=== PATIENT | male | born 1950 | race Caucasian/White ===

== ENCOUNTER → 2020-11-02 | Day surgery (SDC) | payer MEDICARE ==
[2020-10-31 15:05] LABS: BASOPHILS # (AUTO) 0.1 (0.0-0.1); BASOPHILS % 0.8 % (0.0-1.0); EOSINOPHILS # (AUTO) 0.5 (0.0-0.4); EOSINOPHILS % 5.4 % (0.0-6.0); HEMATOCRIT 38.7 % (38.2-49.6); HEMOGLOBIN 11.9 g/dL (14.0-18.0); LYMPHOCYTES # (AUTO) 2.4 (1.0-3.2); LYMPHOCYTES % 25.9 % (18.0-39.1); MEAN CORPUSCULAR HEMOGLOBIN 26.9 pg (28-32); MEAN CORPUSCULAR HGB CONC 30.7 g/dL (31-35); MEAN CORPUSCULAR VOLUME 87.6 fL (81-99); MONOCYTES # (AUTO) 0.8 (0.2-0.8); MONOCYTES % 8.8 % (4.4-11.3); NEUTROPHILS # (AUTO) 5.4 (2.1-6.9); NEUTROPHILS % 58.7 % (38.7-80.0); PLATELET COUNT 265 x10e3/uL (140-360); RED BLOOD COUNT 4.42 x10e6/uL (4.3-5.7); RED CELL DISTRIBUTION WIDTH 15.7 % (11.7-14.4)
[~2020-11-02] MED LIST: ASPIRIN81 MG PO; B&O 60MG R/S 60 MG SUPP PR ONE; BACLOFEN20 MG PO; BUPIVACAINE HCL 0.5% INJ 30 ML VIAL INJ ONE; CIPRO250 MG PO; DEXAMETHASONE SOD PHOS INJ 4 MG/ML VIAL ONE; ELIQUIS2.5 MG PO; IOPAMIDOL 300MG/ML 50ML INFUS..BTL IV ONE; LIDOCAINE 1% W/EPINEPHRINE 20 ML VIAL ONE; NEURONTIN300 MG PO; ONDANSETRON HCL INJ 2MG/ML 2ML 2 MG/ML VIAL ONE; OXYCODONE HCL20 M1 PO; OXYCODONE/ACETAMINOPHEN 5-325 1 EACH TABLET ONE; PIPERACILLIN/TAZOBACTAM 3.375 GM VIAL ONE; POVIDONE IODINE 0.05% 0.05 % ML PO ONE; SEVOFLURANE INHAL SOLN 250 ML PEN BTL ONE; SLEEPING AID; SODIUM CHLORIDE 0.9% 50ML 50 ML ONE; TIZANIDINE HCL4 M1 PO; VENOFER100 MG/5 M PO; [UNRECOGNIZED DRUG - OTHER]
[2020-11-02 09:50] VITALS: BP 93/48
== END | disposition home or self-care (01) ==
LOC: OR 06:12
PROVIDERS: ATTEND Urology
DX: R33.9 Retention of urine, unspecified (principal); N31.9 Neuromuscular dysfunction of bladder, unspecified; N39.0 Urinary tract infection, site not specified; R39.14 Feeling of incomplete bladder emptying; N39.41 Urge incontinence; E66.9 Obesity, unspecified; R60.0 Localized edema; N21.0 Calculus in bladder; Z68.25 Body mass index [BMI] 25.0-25.9, adult; Z01.810 Encounter for preprocedural cardiovascular examination; Z01.812 Encounter for preprocedural laboratory examination; Z01.818 Encounter for other preprocedural examination; Z20.822 Contact with and (suspected) exposure to COVID-19
CPT/HCPCS: 36415; 51102; 52005; 52317; 71046; 74420; 85025; 88300; 93005; C1758; J1100; J2405; J2543; Q9967; U0002